=== PATIENT | female | born 1945 ===

== ENCOUNTER 2023-12-17 09:27 | Inpatient (IN) ==
[2023-12-17] MEDS: Orphenadrine Citrate INJ 30 mg/ml 2 ml VIAL (60 mg) IM ONE (13:30)
[2023-12-17] MEDS: Lidocaine PATCH 5% PATCH TRANSDERM ONE (13:34)
[2023-12-17 15:04] LABS: ABS Lymphocytes 0.6 10^3/uL (1.0-4.8); ABS Monocytes 0.3 10^3/uL (0.0-0.9); ABS Neutrophils 4.8 10^3/uL (1.5-7.6); Eosinophil % 0.2 %; Hematocrit 34.5 % (35-45); Hemoglobin 11.8 g/dL (11.5-14.3); Lymphocyte % 10.1 %; Mean Corpuscular Hemoglobin 31.2 pg (27-33); Mean Corpuscular Hgb Conc 34.1 g/dL (31-36); Mean Corpuscular Volume 91.4 fL (80-97); Mean Platelet Volume 6.7 fL (7.5-11.2); Platelet Count 247 10^3/uL (150-450); Red Blood Count 3.78 10^6/uL (3.63-4.92); Red Cell Distribution Width 13.6 % (12-17); White Blood Count 5.7 10^3/uL (3.8-11.8)
[2023-12-17 15:55] LABS: Calcium 8.5 mg/dL (8.6-10.3); Creatinine, Serum 0.79 mg/dL (0.51-0.95); Potassium 3.8 mmol/L (3.5-5.0); eGFR CKD-EPI 77.5 (>60)
[2023-12-17 19:00] LABS: Albumin/Globulin Ratio 1.9 (1-3); Direct Bilirubin 0.1 mg/dL (0.03-0.18); Globulin 2.1 g/dL (2-4); Indirect Bilirubin 0.6 mg/dL (0.3-1.0); Total Bilirubin 0.7 mg/dL (0.2-1.0); Total Protein 6.1 g/dL (6.4-8.9)
[2023-12-17 19:36] LABS: INR 1.02 (0.85-1.14)
[2023-12-17 19:49] LABS: Carcinoembryonic Antigen 1.5 ng/mL (0.1-5.0)
[2023-12-17] MEDS ORDERED: Senna TAB 8.6 mg TAB PO PRN (20:04)
[2023-12-17] MEDS ORDERED: Magnesium Hydroxide LIQ 30 ML UDC PO PRN (20:04)
[2023-12-17] MEDS: Magnesium Hydroxide LIQ 30 ML UDC PO SCH (21:09)
[2023-12-17] MEDS ORDERED: fentaNYL 100 mcg/2 ml 50 MCG/ML VIAL IV PRN (21:20)
[2023-12-17] MEDS ORDERED: Metoclopramide 5 MG/ML VIAL (10 mg) IV PRN (21:20)
[2023-12-17] MEDS ORDERED: Naloxone 0.4 mg VIAL 0.4 mg/ml 1 ml VIAL IV PRN (21:20)
[2023-12-17] MEDS ORDERED: NS 0.45% 1000 ml BAG 1,000 ML IV SCH (22:00)
[2023-12-17] MEDS: Lactated Ringers 1000 ml BAG 1,000 ML IV SCH ×2 (23:10→23:15)
[2023-12-18 07:08] LABS: Albumin 3.6 g/dL (3.2-5.2); Albumin/Globulin Ratio 1.9 (1-3); Calcium 8.3 mg/dL (8.6-10.3); Creatinine, Serum 0.78 mg/dL (0.51-0.95); Globulin 1.9 g/dL (2-4); Magnesium 2.3 mg/dL (1.9-2.7); Potassium 4.4 mmol/L (3.5-5.0); Total Bilirubin 0.6 mg/dL (0.2-1.0); Total Protein 5.5 g/dL (6.4-8.9); eGFR CKD-EPI 78.7 (>60)
[2023-12-18 08:53] LABS: Hematocrit 33.1 % (35-45); Hemoglobin 11.4 g/dL (11.5-14.3); Mean Corpuscular Hemoglobin 31.9 pg (27-33); Mean Corpuscular Hgb Conc 34.5 g/dL (31-36); Mean Corpuscular Volume 92.3 fL (80-97); Platelet Count 229 10^3/uL (150-450); Red Blood Count 3.58 10^6/uL (3.63-4.92); Red Cell Distribution Width 13.5 % (12-17); White Blood Count 5.8 10^3/uL (3.8-11.8)
[2023-12-18] MEDS: Iohexol 300 (CONTRAST) 10 ML SDV IV ONE (09:52)
[2023-12-18] MEDS: Polyethylene Glycol 3350 17 GM PACKET PO SCH (11:12)
[2023-12-18] MEDS: Potassium Chlor 10 meq TAB PO SCH (11:12)
[2023-12-18] MEDS: Scopolamine 1 mg/72hr PATCH TRANSDERM ONE (11:13)
[2023-12-18] MEDS: Acetaminophen IV 1 GM/100ML 1,000 MG/100 ML BAG IV ONE (11:14)
[2023-12-18] MEDS: Buffered Lidocaine 1% SYRIN 1 ml INTRADERM ONE (11:14)
[2023-12-18] MEDS ORDERED: Naloxone 0.4 mg VIAL 0.4 mg/ml 1 ml VIAL IV PRN (13:45)
[2023-12-18] MEDS ORDERED: Ondansetron 4 mg VIAL 2 MG/ML 2 ml VIAL IV PRN (13:45)
[2023-12-18] MEDS ORDERED: fentaNYL 100 mcg/2 ml 50 MCG/ML VIAL IV PRN (13:45)
[2023-12-18] MEDS ORDERED: Metoclopramide 5 MG/ML VIAL (10 mg) IV PRN (13:45)
[2023-12-18] MEDS ORDERED: NS 0.45% 1000 ml BAG 1,000 ML IV SCH (14:00)
[2023-12-18] MEDS ORDERED: Rocuronium 50 mg VIAL 10 mg/ml 5 ml VIAL (50 mg) ONE (15:59)
[2023-12-18] MEDS ORDERED: Propofol 10 MG/ML 20 ML BTL ONE (15:59)
[2023-12-18] MEDS ORDERED: Lidocaine 2% PF 5 ML VIAL ONE (15:59)
[2023-12-18] MEDS ORDERED: fentaNYL 100 mcg/2 ml 50 MCG/ML VIAL ONE (15:59)
[2023-12-18] MEDS ORDERED: Clindamycin 900 MG/50 **NS BAG 900 MG/50 ML BAG ONE (16:45)
[2023-12-18] MEDS ORDERED: Tranexamic Acid 1 GM/100ML BAG 2,000 MG/200 ML BAG IV ONE (16:45)
[2023-12-18] MEDS ORDERED: ROPIVACAINE 5 MG/ML 30 ML BTL (0.5%) ONE (17:02)
[2023-12-18] MEDS ORDERED: Ondansetron 4 mg VIAL 2 MG/ML 2 ml VIAL ONE ×2 (17:38→20:22)
[2023-12-18] MEDS ORDERED: Dexamethasone IV 4 MG/ML VIAL 1 ml VIAL ONE (17:38)
[2023-12-18] MEDS ORDERED: Morphine 10 MG/ML VIAL (1 ml) ONE (17:55)
[2023-12-18] MEDS ORDERED: Sodium Chloride 0.9% 10 ML ONE (17:56)
[2023-12-18] MEDS ORDERED: Acetaminophen IV 1 GM/100ML 1,000 MG/100 ML BAG IV ONE (18:29)
[2023-12-18] MEDS: Ondansetron 4 mg VIAL 2 MG/ML 2 ml VIAL IV PRN (20:23)
[2023-12-18] MEDS ORDERED: Enoxaparin 40 MG/0.4 ML SYR SUBCUT SCH (21:00)
[2023-12-18] MEDS ORDERED: Magnesium Hydroxide LIQ 30 ML UDC PO PRN (22:02)
[2023-12-18] MEDS ORDERED: Polyethylene Glycol 3350 17 GM PACKET PO PRN (22:02)
[2023-12-18] MEDS ORDERED: Senna TAB 8.6 mg TAB PO PRN (22:02)
[2023-12-18] MEDS: Magnesium Hydroxide LIQ 30 ML UDC PO SCH (23:18)
[2023-12-19] MEDS: Scopolamine 1 mg/72hr PATCH TRANSDERM ONE (00:29)
[2023-12-19] MEDS: Lactated Ringers 1000 ml BAG 1,000 ML IV SCH (00:29)
[2023-12-19] MEDS: Acetaminophen IV 1 GM/100ML 1,000 MG/100 ML BAG IV ONE (00:30)
[2023-12-19] MEDS: Buffered Lidocaine 1% SYRIN 1 ml INTRADERM ONE (00:30)
[2023-12-19] MEDS: Clindamycin 600 MG/D5W BAG 600 MG/50 ML BAG IV SCH (01:47)
[2023-12-19 06:37] LABS: ABS Lymphocytes 0.2 10^3/uL (1.0-4.8); ABS Monocytes 0.4 10^3/uL (0.0-0.9); ABS Neutrophils 5.7 10^3/uL (1.5-7.6); Hematocrit 31.2 % (35-45); Hemoglobin 10.6 g/dL (11.5-14.3); Lymphocyte % 3.7 %; Mean Corpuscular Hemoglobin 31.6 pg (27-33); Mean Corpuscular Hgb Conc 33.8 g/dL (31-36); Mean Corpuscular Volume 93.3 fL (80-97); Platelet Count 215 10^3/uL (150-450); Red Blood Count 3.35 10^6/uL (3.63-4.92); Red Cell Distribution Width 13.5 % (12-17); White Blood Count 6.3 10^3/uL (3.8-11.8)
[2023-12-19 06:51] LABS: Albumin 3.5 g/dL (3.2-5.2); Albumin/Globulin Ratio 1.8 (1-3); Calcium 7.5 mg/dL (8.6-10.3); Creatinine, Serum 0.9 mg/dL (0.51-0.95); Globulin 1.9 g/dL (2-4); Potassium 4.7 mmol/L (3.5-5.0); Total Bilirubin 0.4 mg/dL (0.2-1.0); Total Protein 5.4 g/dL (6.4-8.9); eGFR CKD-EPI 66.3 (>60)
[2023-12-19] MEDS: Enoxaparin 40 MG/0.4 ML SYR SUBCUT SCH (12:51)
[2023-12-20 05:50] LABS: ABS Lymphocytes 0.6 10^3/uL (1.0-4.8); ABS Monocytes 0.5 10^3/uL (0.0-0.9); ABS Neutrophils 5.2 10^3/uL (1.5-7.6); Eosinophil % 0.2 %; Hemoglobin 10.3 g/dL (11.5-14.3); Lymphocyte % 9.5 %; Mean Corpuscular Hgb Conc 34.2 g/dL (31-36); Mean Corpuscular Volume 93.4 fL (80-97); Mean Platelet Volume 6.7 fL (7.5-11.2); Platelet Count 221 10^3/uL (150-450); Red Blood Count 3.21 10^6/uL (3.63-4.92); Red Cell Distribution Width 13.7 % (12-17); White Blood Count 6.3 10^3/uL (3.8-11.8)
[2023-12-20 06:17] LABS: Calcium 7.9 mg/dL (8.6-10.3); Creatinine, Serum 0.72 mg/dL (0.51-0.95); Magnesium 2.1 mg/dL (1.9-2.7); Phosphorus 3.1 mg/dL (2.5-5.0); Potassium 4.4 mmol/L (3.5-5.0); eGFR CKD-EPI 86.6 (>60)
[2023-12-21 06:19] LABS: Mean Corpuscular Hemoglobin 31.9 pg (27-33); Mean Corpuscular Hgb Conc 34.5 g/dL (31-36); Mean Corpuscular Volume 92.6 fL (80-97); Mean Platelet Volume 6.8 fL (7.5-11.2); Platelet Count 275 10^3/uL (150-450); Red Blood Count 3.45 10^6/uL (3.63-4.92); Red Cell Distribution Width 13.5 % (12-17); White Blood Count 6.7 10^3/uL (3.8-11.8)
[2023-12-21 06:50] LABS: Creatinine, Serum 0.73 mg/dL (0.51-0.95); Magnesium 2.1 mg/dL (1.9-2.7); eGFR CKD-EPI 85.2 (>60)
[2023-12-21] MEDS: Ondansetron 4 mg VIAL 2 MG/ML 2 ml VIAL IV PRN (15:45)
[2023-12-21 18:56] LABS: Albumin 3.4 g/dL (3.2-5.2); Albumin/Globulin Ratio 1.5 (1-3); Direct Bilirubin 0.1 mg/dL (0.03-0.18); Globulin 2.2 g/dL (2-4); Indirect Bilirubin 0.5 mg/dL (0.3-1.0); Total Bilirubin 0.6 mg/dL (0.2-1.0); Total Protein 5.6 g/dL (6.4-8.9)
[2023-12-21 19:30] LABS: Urine Appearance Clear; Urine Bilirubin Negative (Negative); Urine Blood 1+ (Negative); Urine Color Yellow; Urine Glucose 2+ (>=150 mg/dL) (Negative); Urine Ketones 1+ (Negative); Urine Nitrite Negative (Negative); Urine Protein 1+ (>=30 mg/dL) (Negative); Urine Specific Gravity 1.032 (1.002-1.030); Urine Urobilinogen Negative (Negative)
[2023-12-21 19:34] LABS: Urine Bacteria Absent /HPF (Absent); Urine Red Blood Cell 1+(3-5/hpf) /HPF (0-Trace); Urine Squamous Epithelial Cell Present /HPF (Absent); Urine White Blood Cell Trace(0-5/hpf) /HPF (0-Trace)
[2023-12-22 14:49] LABS: Albumin 3.2 g/dL (3.2-5.2); Albumin/Globulin Ratio 1.5 (1-3); C Reactive Protein 120.43 mg/L (<8.01); Calcium 7.7 mg/dL (8.6-10.3); Creatinine, Serum 0.8 mg/dL (0.51-0.95); Globulin 2.1 g/dL (2-4); Magnesium 2.1 mg/dL (1.9-2.7); Potassium 4.3 mmol/L (3.5-5.0); Total Bilirubin 0.5 mg/dL (0.2-1.0); Total Protein 5.3 g/dL (6.4-8.9); eGFR CKD-EPI 76.3 (>60)
[2023-12-22 14:58] LABS: ABS Eosinophils 0.1 10^3/uL (0.0-0.5); ABS Lymphocytes 0.6 10^3/uL (1.0-4.8); ABS Monocytes 0.3 10^3/uL (0.0-0.9); Eosinophil % 1.3 %; Hematocrit 30.3 % (35-45); Hemoglobin 10.4 g/dL (11.5-14.3); Lymphocyte % 11.9 %; Mean Corpuscular Hemoglobin 31.8 pg (27-33); Mean Corpuscular Hgb Conc 34.3 g/dL (31-36); Mean Corpuscular Volume 92.7 fL (80-97); Mean Platelet Volume 6.2 fL (7.5-11.2); Platelet Count 315 10^3/uL (150-450); Red Blood Count 3.27 10^6/uL (3.63-4.92); Red Cell Distribution Width 13.5 % (12-17)
[2023-12-23 05:53] LABS: Hematocrit 29.9 % (35-45); Hemoglobin 10.4 g/dL (11.5-14.3); Mean Corpuscular Hemoglobin 32.1 pg (27-33); Mean Corpuscular Volume 91.7 fL (80-97); Mean Platelet Volume 6.4 fL (7.5-11.2); Platelet Count 324 10^3/uL (150-450); Red Blood Count 3.26 10^6/uL (3.63-4.92); Red Cell Distribution Width 13.2 % (12-17); White Blood Count 5.2 10^3/uL (3.8-11.8)
[2023-12-23 06:09] LABS: Albumin 3.2 g/dL (3.2-5.2); Albumin/Globulin Ratio 1.5 (1-3); CRP High Sensitivity 59.34 mg/L (<2.00); Creatinine, Serum 0.65 mg/dL (0.51-0.95); Direct Bilirubin 0.1 mg/dL (0.03-0.18); Globulin 2.1 g/dL (2-4); Indirect Bilirubin 0.4 mg/dL (0.3-1.0); Potassium 4.2 mmol/L (3.5-5.0); Total Bilirubin 0.5 mg/dL (0.2-1.0); Total Protein 5.3 g/dL (6.4-8.9); eGFR CKD-EPI 91.2 (>60)
[2023-12-23 09:37] VITALS: BP 125/88
[2023-12-23 10:18] LABS: Rapid COVID-19 Molecular Undetected (Undetected)
== END 2023-12-23 10:55 | DRG 522 ==
LOC: EDHOLD 09:27 → ED 09:27 → SSU 17:45 → SUATTDRO 12-18 15:36
PROVIDERS: ADMIT Internal Medicine; ATTEND Student in an Organized Health Care Education/Training Program

== ENCOUNTER 2024-02-22 10:35 | Observation (INO) ==
[2024-02-22] MEDS: Acetaminophen IV 1 GM/100ML 1,000 MG/100 ML BAG IV ONE (13:52)
[2024-02-22 14:03] LABS: ABS Lymphocytes 0.5 10^3/uL (1.0-4.8); ABS Monocytes 0.3 10^3/uL (0.0-0.9); ABS Neutrophils 6.8 10^3/uL (1.5-7.6); Eosinophil % 0.3 %; Hematocrit 35.4 % (35-45); Hemoglobin 11.8 g/dL (11.5-14.3); Lymphocyte % 6.1 %; Mean Corpuscular Hemoglobin 30.3 pg (27-33); Mean Corpuscular Hgb Conc 33.4 g/dL (31-36); Mean Corpuscular Volume 90.8 fL (80-97); Mean Platelet Volume 6.6 fL (7.5-11.2); Platelet Count 301 10^3/uL (150-450); Red Cell Distribution Width 14.2 % (12-17); White Blood Count 7.6 10^3/uL (3.8-11.8)
[2024-02-22 14:30] LABS: Albumin 4.1 g/dL (3.2-5.2); Albumin/Globulin Ratio 1.9 (1-3); C Reactive Protein 102.03 mg/L (<8.01); Calcium 8.7 mg/dL (8.6-10.3); Creatinine, Serum 0.71 mg/dL (0.51-0.95); Globulin 2.2 g/dL (2-4); Total Bilirubin 0.8 mg/dL (0.2-1.0); Total Protein 6.3 g/dL (6.4-8.9); eGFR CKD-EPI 88.1 (>60)
[2024-02-22] MEDS: Iohexol 350 (CONTRAST) 500 ML MDV IV ONE (14:42)
[2024-02-22 14:44] LABS: Urine Appearance Turbid; Urine Bilirubin Negative (Negative); Urine Blood Trace (Negative); Urine Color Yellow; Urine Glucose Negative (Negative); Urine Ketones 3+ (Negative); Urine Nitrite Negative (Negative); Urine Protein 1+ (>=30 mg/dL) (Negative); Urine Specific Gravity 1.029 (1.002-1.030); Urine Urobilinogen Negative (Negative); Urine pH 5.5 (5.0-8.0)
[2024-02-22 14:47] LABS: Urine Bacteria Absent /HPF (Absent); Urine Red Blood Cell 2+(6-10/hpf) /HPF (0-Trace); Urine Squamous Epithelial Cell Present /HPF (Absent); Urine White Blood Cell 1+(6-10/hpf) /HPF (0-Trace)
[2024-02-22] MEDS: Cefepime 2 GM in Dextrose 2 GM/50 ML BAG IV ONE (15:25)
[2024-02-22] MEDS: metroNIDAZOLE IV 500 MG/100ML 500 MG/100 ML BAG IVPB ONE (15:41)
[2024-02-22] MEDS: Lactated Ringers 1000 ml BAG 1,000 ML IV ONE (15:41)
[2024-02-22] MEDS ORDERED: oxyCODONE/Acetamin 5/325 mg TAB PO PRN (18:02)
[2024-02-22] MEDS: Lactated Ringers 1000 ml BAG 1,000 ML IV SCH (18:25)
[2024-02-22] MEDS: Morphine 2 MG/ML SYRINGE IV PRN (18:34)
[2024-02-22] MEDS: Enoxaparin 30 MG/0.3 ML SYR SUBCUT SCH (20:50)
[2024-02-23] MEDS: Cefepime 2 GM in Dextrose 2 GM/50 ML BAG IV SCH (03:09)
[2024-02-23 05:17] LABS: ABS Eosinophils 0.1 10^3/uL (0.0-0.5); ABS Lymphocytes 0.6 10^3/uL (1.0-4.8); ABS Monocytes 0.5 10^3/uL (0.0-0.9); ABS Neutrophils 6.9 10^3/uL (1.5-7.6); Eosinophil % 1.4 %; Hematocrit 33.2 % (35-45); Hemoglobin 11.2 g/dL (11.5-14.3); Lymphocyte % 7.3 %; Mean Corpuscular Hemoglobin 30.6 pg (27-33); Mean Corpuscular Hgb Conc 33.7 g/dL (31-36); Mean Corpuscular Volume 90.9 fL (80-97); Mean Platelet Volume 6.8 fL (7.5-11.2); Platelet Count 306 10^3/uL (150-450); Red Blood Count 3.66 10^6/uL (3.63-4.92); Red Cell Distribution Width 14.3 % (12-17); White Blood Count 8.2 10^3/uL (3.8-11.8)
[2024-02-23 06:09] LABS: Anion Gap 7 mmol/L (2-16); Blood Urea Nitrogen 15 mg/dL (6-24); CO2 Carbon Dioxide 26 mmol/L (22-32); Calcium 8.1 mg/dL (8.6-10.3); Chloride 102 mmol/L (101-111); Glucose 99 mg/dL (70-100); Sodium 135 mmol/L (135-145); eGFR CKD-EPI 89.6 (>60)
[2024-02-23 13:48] VITALS: BP 123/68
[2024-02-23] MEDS: Ondansetron 4 mg VIAL 2 MG/ML 2 ml VIAL IV PRN (16:57)
[2024-02-23] MEDS ORDERED: metroNIDAZOLE IV 500 MG/100ML 500 MG/100 ML BAG IVPB SCH (23:00)
== END 2024-02-23 14:53 | disposition short-term general hospital (02) ==
LOC: ED 10:35 → EDHOLD 10:35 → MEDTELE 02-23 05:26
PROVIDERS: ADMIT Surgery; ATTEND Surgery